=== PATIENT | male | born 1975 | race Caucasian/White ===

== ENCOUNTER 2018-12-21 21:15 | Emergency (ER) | payer BC ==
[2018-12-21 21:27] VITALS: PULSE 88
[2018-12-21] MEDS ORDERED: KETOROLAC 30 MG/ML 1 ML VIAL IM STA (22:12)
[2018-12-21] MEDS ORDERED: ACET/COD 300 MG/30 MG STARTER PACK 6 TAB BTL PO STA (22:12)
[2018-12-21] MEDS ORDERED: methylPREDNISolone SOD SUCCI 125 MG/2 ML VIAL IM ONE (22:12)
--- NOTE | 2018-12-21 22:14 | ED ---
General Adult HPI - General Chief complaint: Extremity Injury, Upper Stated complaint: Wrist Injury Time Seen by Provider: 12/21/18 21:39 Source: patient Mode of arrival: ambulatory Limitations: no limitations - History of Present Illness Initial comments: 43-year-old male patient presents to the emergency department today for evaluation of left wrist pain and swelling. Patient states the pain has been present for the last 2 days. States he has not had any injury to the wrist and has no history of similar symptoms. Patient states that the pain increases significantly with any types of movement or rotation of the wrist. Patient states he was seen and evaluated at [facility] this morning he did have x-rays performed. He was given a wrist splint. States that the wrist splint and ibuprofen did help for sure. But the pain returned. Denies any numbness or tingling to the hand. States he does have radiation of the pain into the pinky finger. He denies any elbow or shoulder pain. Denies any fever or chills. Patient denies any headache, neck pain, back pain, chest pain, shortness of breath, dizziness, weakness, abdominal pain, nausea, vomiting, or difficulties with bowel movements or urination. - Related Data Previous Rx's Medication Instructions Recorded Acetaminophen-Codeine 300-30mg 1 tab PO Q6H PRN #12 tablet 12/21/18 [Tylenol #3] predniSONE 50 mg PO DAILY #5 tablet 12/21/18 Allergies Allergy/AdvReac Type Severity Reaction Status Date / Time No Known Allergies Allergy Verified 12/21/18 21:52 Review of Systems ROS Statement: Those systems with pertinent positive or pertinent negative responses have been documented in the HPI. ROS Other: All systems not noted in ROS Statement are negative. Past Medical History Past Medical History: No Reported History History of Any Multi-Drug Resistant Organisms: None Reported Past Surgical History: Orthopedic Surgery Additional Past Surgical History / Comment(s): lt ankle Past Psychological History: No Psychological Hx Reported Smoking Status: Never smoker Past Alcohol Use History: None Reported Past Drug Use History: None Reported General Exam Limitations: no limitations General appearance: alert, in no apparent distress, other (This is a well- developed, well-nourished adult male patient in no acute distress. Vital signs upon presentation are temperature 98.3F, pulse 88, respirations 20, blood pressure 140 44/88, pulse ox 99% on room air.) Respiratory exam: Present: normal lung sounds bilaterally. Absent: respiratory distress, wheezes, rales, rhonchi, stridor Cardiovascular Exam: Present: regular rate, normal rhythm, normal heart sounds. Absent: systolic murmur, diastolic murmur, rubs, gallop, clicks Extremities exam: Present: full ROM, tenderness (over the dorsal aspect of the left wrist), normal capillary refill, other (Soft tissue swelling surrounding the left wrist. No erythema or warmth. Skin to the hand is pink, warm, dry. Cap refills less than 3 seconds. Radial pulses 2+ and equal bilaterally.). Absent: normal inspection, pedal edema, joint swelling, calf tenderness Neurological exam: Present: alert, oriented X3, CN II-XII intact Psychiatric exam: Present: normal affect, normal mood Skin exam: Present: warm, dry, intact, normal color. Absent: rash Course Vital Signs 12/21/18 12/21/18 12/21/18 21:23 22:25 22:32 Temperature 98.3 F 98 F Pulse Rate 88 88 Respiratory 20 18 Rate Blood Pressure 145/88 146/90 O2 Sat by Pulse 99 99 Oximetry Medical Decision Making - Medical Decision Making 43-year-old male patient presented to the emergency department today for evaluation of left wrist pain and swelling. Physical examination did reveal swelling surrounding the left wrist. Neurovascular status was intact. Patient denies injury. X-ray this morning around [facility] which was negative for any evidence of fracture. Patient is given a splint by their facility as well. He'll be discharged home with anti-inflammatory pain medication. He'll be given steroids here in the emergency department. He is instructed to follow-up with his primary care physician as well as sap specialist for further evaluation. Return parameters were discussed in detail. He verbalizes understanding and agrees with this plan. Disposition Clinical Impression: Left wrist pain Disposition: HOME SELF-CARE Condition: Good Instructions (If sedation given, give patient instructions): Arthralgia (ED), Swollen Joint (ED) Additional Instructions: Continue to wear brace. Take medications as directed. Follow-up with sap specialist for further evaluation. Return to the emergency department immediately for any new, worsening, or concerning symptoms. Prescriptions: predniSONE 50 mg PO DAILY #5 tablet Acetaminophen-Codeine 300-30mg [Tylenol #3] 1 tab PO Q6H PRN #12 tablet PRN Reason: Pain Is patient prescribed a controlled substance at d/c from ED?: No Referrals: Ellis Duncan DO [Medical Doctor] - 1-2 days Time of Disposition: 22:14
[2018-12-21 22:28] VITALS: RESP 18; TEMP 98
[2018-12-21 22:33] VITALS: BP 146/90
== END 2018-12-21 22:37 | disposition home or self-care (01) ==
LOC: EC 21:15
DX: M25.532 Pain in left wrist (principal)
CPT/HCPCS: 99284; 96372 ×2; J2930; J1885

== ENCOUNTER 2021-06-15 09:11 | Day surgery (SDC) | payer BC, OTHER ==
[2021-06-12 09:59] VITALS: BMI 31.6
[~2021-06-15 09:11] MED LIST: LACTATED RINGERS 1,000 ML IV SCH; LIDOCAINE 1% (10MG/ML) FOR IV START INTRADERMA PRN
[2021-06-15 09:33] VITALS: RESP 16; TEMP 97.6
[2021-06-15] MEDS ORDERED: LIDOCAINE 1% INJ 10MG/ML (20 ML MDV) ONE (09:49)
[2021-06-15] MEDS ORDERED: MIDAZOLAM 2 MG/2 ML VIAL ONE (09:49)
[2021-06-15] MEDS ORDERED: PROPOFOL 10 MG/ML 20 ML VIAL IV ONE (09:49)
--- NOTE | 2021-06-15 10:14 | P.PCN ---
Date of Procedure: 06/15/21 Procedure(s) Performed: Brief history: Patient is a pleasant 45-year-old white female scheduled for an elective upper endoscopy as well as colonoscopy as a part of evaluation of GERD/chronic diarrhea and intermittent lower abdominal pain of several years duration Procedure performed: Esophagogastroduodenoscopy with biopsy Colonoscopy with biopsy Preoperative diagnosis: GERD Lower abdominal pain and chronic diarrhea of several years duration Anesthesia: MAC Procedure: After informed consent was obtained from the patient was brought into the endoscopy unit and IV sedation was administered by anesthesia under continuous monitoring. Initially upper endoscopy was done. The Olympus GF 160 video endoscope was inserted inserted into the mouth and esophagus intubated without any difficulty and was gradually advanced into the stomach and duodenum and carefully examined. The bulb and second part of the duodenum appeared normal. Biopsies were done from the duodenum to rule out celiac disease. The scope was then withdrawn into the stomach adequately insufflated with air and upon careful examination the antrumhad mild gastritis and biopsies were done from this area. The and body, cardia and fundus appeared normal. The scope was then withdrawn into the esophagus. The GE junction was located at 40 cm to the incisors. Sliding type hiatal hernia noted. It appeared regulara fissure erosions consistent with LA grade B reflux esophagitis.. Rest of the esophagus appeared normal. Patient tolerated the procedure well. At this time the patient continued to remain sedation. Initial digital rectal examination was normal. Olympus CF 160 video colonoscope was then inserted into the rectum and gradually advanced to the cecum without any difficulty. Careful examination was performed as the scope was gradually being withdrawn. The prep was excellent. The cecum, ascending colon, transverse colon, descending colon, sigmoid colon and rectum appeared normal. Retroflexion was performed in the rectum and no lesions were noted. Biopsies were done from ascending and descending colon to rule out metastatic/collagenous colitis Patient tolerated the procedure well. Impression: 1.Upper endoscopy revealed LA grade B reflux esophagitis, mild antral gastritis and small hiatal 2.Colonoscopy was within normal limits with no evidence of colitis or colorectal neoplasia Recommendations: Findings of this examination were discussed with the patient as well asHis family. He was advised to follow with the biopsy results. He'll be started on omeprazole 20 mg daily and was briefly educated about antireflux measures. He was advised to have a repeat screening colonoscopy in 10 years.
[2021-06-15 10:45] VITALS: BP 124/83; PULSE 67
== END 2021-06-15 11:10 | disposition home or self-care (01) ==
LOC: ORWHC2ENDO 09:11
PROVIDERS: ATTEND Internal Medicine Gastroenterology
DX: K29.70 Gastritis, unspecified, without bleeding (principal); K21.00 Gastro-esophageal reflux disease with esophagitis, without bleeding; K21.9 Gastro-esophageal reflux disease without esophagitis
CPT/HCPCS: 45380; 43239; 88305; J2250; J2001; J2704